=== PATIENT | male | born 1985 | race Two or more races ===

== ENCOUNTER 2024-02-16 15:36 | Emergency (ER) | payer OTHER ==
[~2024-02-16] VITALS: Ht 162.6 cm; Wt 85.7 kg
[2024-02-16 19:03] LABS: URINE APPEARANCE Clear; URINE BILIRRUBIN Small (NEGATIVE); URINE BLOOD Negative; URINE COLOR Orange; URINE GLUCOSE Negative (NEGATIVE); URINE KETONE Negative (NEGATIVE); URINE LEUKOCYTE Small; URINE NITRATE Positive; URINE PROTEIN Trace (NEGATIVE)
[2024-02-16 19:07] LABS: URINE BACTERIA 16.3 uL (0.0-1933); URINE EPITHELIAL CELLS 8.4 uL (0.0-38.8); URINE RBC 4.7 uL (0.0-20.8); URINE WBC 3.8 uL (0.0-23.2)
[2024-02-16 19:09] LABS: HEMATOCRIT 44.2 % (39.0-48.0); HEMOGLOBIN 15.2 g/dL (13-16.00); MEAN CELL VOLUME 84.5 fL (80.0-100.00); MEAN CORPUSCULAR HEMOGLOBIN 29.1 pg (27.00-32.0); MEAN CORPUSCULAR HGB CONC 34.5 g/dl (32.0-36.0); PLATELET COUNT 354 K/uL (150-450); RED BLOOD COUNT 5.23 M/uL (4.00-6.00); RED CELL DISTRIBUTION WIDTH 13.9 % (11.5-14.5)
[2024-02-16 19:25] LABS: URINE CAST 0.15 uL (0.0-1.40)
[2024-02-16] MEDS ORDERED: CEFTRIAXONE SODIUM 1,000 MG VIAL IM STA (19:48)
[2024-02-16 20:02] LABS: CALCIUM 10.3 mg/dL (8.5-10.1); CREATININE SERUM 1.02 mg/dL (0.70-1.30); GFR 81.31; POTASSIUM 4.46 mEq/L (3.5-5.1)
== END 2024-02-16 21:04 | disposition home or self-care (01) ==
LOC: ER 15:38
PROVIDERS: General Practice
DX: N39.0 Urinary tract infection, site not specified (principal)